=== PATIENT | female | born 1950 | race Caucasian/White ===

== ENCOUNTER 2016-10-27 14:26 | Emergency (ER) | END 2016-10-27 16:24 | disposition home or self-care (01) | DX: L03.116 Cellulitis of left lower limb (principal); I10 Essential (primary) hypertension; Z79.82 Long term (current) use of aspirin | CPT/HCPCS: 93971; 96372; Z7502; Z7610 ==

== ENCOUNTER 2017-08-29 16:20 | Emergency (ER) | END 2017-08-29 18:40 | disposition home or self-care (01) ==

== ENCOUNTER 2017-09-05 16:16 | Emergency (ER) | END 2017-09-05 18:05 | disposition home or self-care (01) ==